=== PATIENT | male | born 1955 | race American Indian/Alaskan Native ===

== ENCOUNTER 2016-06-09 14:48 | Emergency (ER) | payer MEDICAID ==
[~2016-06-09] VITALS: Ht 182.9 cm; Wt 86.2 kg
[2016-06-09] MEDS ORDERED: LEVOFLOXACIN 750MG 150 ML IV ONE (15:45)
[2016-06-09] MEDS ORDERED: ONDANSETRON HCL 4 MG/2 ML VIAL IV ONE (15:45)
[2016-06-09] MEDS ORDERED: methylPREDNISolone SOD SUCC 125 MG/2 ML VL IV ONE (15:45)
[2016-06-09 16:31] LABS: Anion Gap 6 (5-15); Aspartate Aminotransferase 20 U/L (15-37); BUN/Creatinine Ratio 12.5; Blood Urea Nitrogen 12 mg/dL (7-18); Calcium 8.6 mg/dL (8.5-10.1); Carbon Dioxide 28 mmol/L (21-32); Chloride 103 mmol/L (98-107); GFR African American 103 mL/min; GFR Non-African American 85 mL/min; Glucose 96 mg/dL (74-106); Magnesium 2.3 mg/dL (1.6-2.6); Sodium 137 mmol/L (136-145)
[2016-06-09 16:32] LABS: Basophils # (auto) 0 uL; Basophils % (auto) 0.8 % (0.0-2.0); Eosinophils # (auto) 0.2 uL; Eosinophils % (auto) 4.8 % (0.0-7.0); Hematocrit 40.8 % (41.0-53.0); Hemoglobin 13.5 g/dL (13.5-17.5); Lymphocytes # (auto) 1.2 uL; Lymphocytes % (auto) 23.7 % (10.0-50.0); Mean Corpuscular Hemoglobin 27.7 pg (28.0-32.0); Mean Corpuscular Hgb Conc. 33.2 g/dL (32.0-36.0); Mean Corpuscular Volume 83.7 fL (80.0-100.0); Mean Platelet Volume 8.7 fL (7.4-10.4); Monocytes # (auto) 0.8 uL; Monocytes % (auto) 17.4 % (0.0-12.0); Neutrophils # (auto) 2.6 uL; Neutrophils % (auto) 53.3 % (37.0-80.0); Platelet Count (auto) 358 10^3/uL (140-450); Red Cell Distribution Width 13.6 % (11.6-16.0); White Blood Cell 4.9 10^3/uL (4.4-10.8)
[2016-06-09 16:36] LABS: Alkaline Phosphatase 89 U/L (45-117); Bilirubin, Total 0.7 mg/dL (0.2-1.0); Total Protein 7.2 g/dL (6.4-8.2)
[2016-06-09 16:40] LABS: B-Type Natriuretic Peptide 3.32 pg/mL (0-100)
[2016-06-09 17:00] LABS: Temperature: 23.7 C (20.0-25.0)
[2016-06-09 17:31] VITALS: BP 127/69
== END 2016-06-09 17:32 | disposition home or self-care (01) ==
LOC: ER 15:03
DX: B34.9 Viral infection, unspecified (principal)
CPT/HCPCS: 36415; 71010; 80053; 83605; 83735; 83880; 84484; 85025; 87040; 93005; 94761; 96365; 96375; 99285; J1956; J2405; J2930

== ENCOUNTER 2016-10-23 12:32 | Emergency (ER) | payer MEDICARE ==
[~2016-10-23] VITALS: Ht 182.9 cm; Wt 86.2 kg
[2016-10-23 14:42] VITALS: BP 129/87
== END 2016-10-23 15:09 | disposition home or self-care (01) ==
LOC: ER 12:32
DX: S61.411D Laceration without foreign body of right hand, subsequent encounter (principal); X58.XXXD Exposure to other specified factors, subsequent encounter

== ENCOUNTER 2016-10-28 15:36 | Emergency (ER) | payer MEDICARE ==
[~2016-10-28] VITALS: Ht 182.9 cm; Wt 86.2 kg
[2016-10-28 15:54] VITALS: BP 138/92
== END 2016-10-28 16:45 | disposition home or self-care (01) ==
LOC: ER 15:42
DX: S61.011D Laceration without foreign body of right thumb without damage to nail, subsequent encounter (principal); X58.XXXD Exposure to other specified factors, subsequent encounter